=== PATIENT | male | born 1950 | race Caucasian/White ===

== ENCOUNTER 2022-07-16 11:46 | Emergency (ER) | payer MEDICARE, OTHER ==
--- NOTE | 2022-07-16 12:19 | ERPHSYRPT ---
- History of Present Illness Time Seen by Provider: 07/16/22 12:18 Source: patient, family Exam Limitations: no limitations Patient Subjective Stated Complaint: Hematuria that started this am. Patient states that he is not supposed to lift over 25 pounds related to prostate issues but lifted an air compressor yesterday evening and now has blood in his urine this am. Denies any pain except when urinating. Patient has burning with urination. Triage Nursing Assessment: Patient ambulated back to ER. He is alert and oriented but hard of hearing. No SOB. Patient supplied a urine sample for staff. Urine is diaz red. No abdominal pain. Physician History: Hematuria that started this am. Patient states that he is not supposed to lift over 25 pounds related to prostate issues but lifted an air compressor yesterday evening and now has blood in his urine this am. Denies any pain except when urinating. Patient has burning with urination. Timing/Duration: today Activites at Onset: physical activity Quality: burning Pain Radiation: none Severity of Pain-Max: none Severity of Pain-Current: none Modifying Factors: Improves With: nothing Associated Symptoms: denies symptoms Prior abdominal problems: none Sexual intercourse history: non-contributory Allergies/Adverse Reactions: Sulfa (Sulfonamide Antibiotics) Allergy (Intermediate, Verified 07/16/22 11:56) Hives guaifenesin [From Humibid] Adverse Reaction (Intermediate, Verified 07/16/22 11:56) Fatigue Pt states makes him feel groggy. morphine Adverse Reaction (Intermediate, Verified 07/16/22 11:56) Nausea and Vomiting Home Medications: Clopidogrel Bisulfate [PLAVIX Tablet] 1 tab PO DAILY 12/25/12 [History] Aspirin EC 81 mg [Ecotrin 81 mg] 1 tab PO DAILY 07/16/22 [History] Losartan Potassium [Cozaar] 1 tab PO DAILY 07/16/22 [History] Metoprolol Tartrate 25 mg [Lopressor 25MG Tab] 1 tab PO BID 07/16/22 [History] Topiramate 1 tab PO DAILY 07/16/22 [History] Hx Tetanus, Diphtheria Vaccination/Date Given: Yes Hx Influenza Vaccination/Date Given: No Hx Pneumococcal Vaccination/Date Given: No Immunizations Up to Date: Yes Travel Risk - International Travel Have you traveled outside of the country in past 3 weeks: No - Coronavirus Screening Are you exhibiting any of the following symptoms?: No Close contact with a COVID-19 positive Pt in past 14-21 Days: No - Vaccine Status Have you recieved a Covid-19 vaccination: Yes 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 - Past Medical History Pertinent Past Medical History: Yes Neurological History: Stroke ENT History: No Pertinent History Cardiac History: Hypertension Respiratory History: No Pertinent History Endocrine Medical History: No Pertinent History Musculoskeletal History: Arthritis, Fractures GI Medical History: Colitis, Gallbladder Disease, Pancreatitis History: Other Psycho-Social History: No Pertinent History Male Reproductive Disorders: Prostate Problems Other Medical History: New Urologist: Dr. Moncada; seen by Kelly Amaro 2 weeks ago - Past Surgical History Past Surgical History: Yes Neuro Surgical History: No Pertinent History Cardiac: Pacemaker Respiratory: No Pertinent History Gastrointestinal: Cholecystectomy, Colon Resection, Other Genitourinary: No Pertinent History Musculoskeletal: Orthopedic Surgery Male Surgical History: No Pertinent History Other Surgical History: right arm fx,colostomy placed and reversed, cardiac loop recorder, TURP X 2 - Social History Smoking Status: Never smoker Exposure to second hand smoke: No Drug Use: none Patient Lives Alone: No - Review of Systems Constitutional: No Fever, No Chills Eyes: No Symptoms Ears, Nose, & Throat: No Symptoms Respiratory: No Cough, No Dyspnea Cardiac: No Chest Pain, No Edema, No Syncope Abdominal/Gastrointestinal: No Abdominal Pain, No Nausea, No Vomiting, No Diarrhea Genitourinary Symptoms: Dysuria, Hematuria Musculoskeletal: No Back Pain, No Neck Pain Skin: No Rash Neurological: No Dizziness, No Focal Weakness, No Sensory Changes Psychological: No Symptoms Endocrine: No Symptoms All Other Systems: Reviewed and Negative - Nursing Vital Signs Nursing Vital Signs: Initial Vital Signs Temperature 97.4 F 07/16/22 11:58 Pain Scale Pain Intensity 0 - Physical Exam General Appearance: no apparent distress, alert Eye Exam: PERRL/EOMI Ears, Nose, Throat Exam: pharynx normal, moist mucous membranes Neck Exam: normal inspection, supple Respiratory Exam: normal breath sounds, lungs clear Cardiovascular Exam: regular rate/rhythm, No edema Gastrointestinal/Abdomen Exam: soft, No tenderness Back Exam: normal inspection, No CVA tenderness Extremity Exam: normal inspection, normal range of motion, No pedal edema Neurologic Exam: alert, oriented x 3, cooperative, sensation nml, No motor deficits Skin Exam: normal color, warm, dry, No rash - Course Nursing assessment & vital signs reviewed: Yes Ordered Tests: Active Orders 24 hr Category Date Time Status CBC W DIFF Stat Lab 07/16/22 12:38 Completed CMP Stat Lab 07/16/22 12:38 Received CULTURE,URINE Stat Lab 07/16/22 12:23 Received Prostate Spec.Ag,Diagnostic Stat Lab 07/16/22 12:38 Received UA W/RFX UR CULTURE Stat Lab 07/16/22 12:23 Completed Lab/Rad Data: Laboratory Result Diagrams 07/16/22 12:38 Laboratory Results 07/16/22 07/16/22 Range/Units 12:38 12:23 WBC 6.1 (4.0-10.5) x10^3/uL RBC 4.50 (4.1-5.6) x10^6/uL Hgb 12.9 (12.5-18.0) g/dL Hct 40.1 L (42-50) % MCV 89.1 (78-100) fL MCH 28.7 (26-32) pg MCHC 32.2 (32-36) g/dL RDW 12.6 (11.5-14.0) % Plt Count 334 (150-450) x10^3/uL MPV 9.2 (7.5-11.0) fL Gran % 65.4 (36.0-66.0) % Immature Gran % (Auto) 0.8 H (0.00-0.4) % Nucleat RBC Rel Count 0.0 (0.00-0.1) % Eos # (Auto) 0.31 (0-0.5) x10^3/uL Immature Gran # (Auto) 0.05 H (0.00-0.03) x10^3u/L Absolute Lymphs (auto) 1.27 (1.0-4.6) x10^3/uL Absolute Monos (auto) 0.42 (0.0-1.3) x10^3/uL Absolute Nucleated RBC 0.00 (0.00-0.01) x10^3u/L Lymphocytes % 20.8 L (24.0-44.0) % Monocytes % 6.9 (0.0-12.0) % Eosinophils % 5.1 H (0.00-5.0) % Basophils % 1.0 (0.0-0.4) % Absolute Granulocytes 4.00 (1.4-6.9) x10^3/uL Basophils # 0.06 (0-0.4) x10^3/uL Urine Color RED (Yellow) Urine Appearance CLOUDY (Clear) Urine Microscopic RBC >100 A (0-5) /HPF Urine Microscopic WBC 3-5 (0-5) /HPF Ur Epithelial Cells Few (None Seen) /HPF Urine Bacteria Few A (None Seen) /HPF Urine Culture Reflexed YES (NO) - Progress Progress: improved Counseled pt/family regarding: diagnosis, need for follow-up Medical Desision Making - Diagnostic Testing Diagnostic Testing: Diagnostic tests were ordered,analyzed, and reviewed by me and used in my medical decision making for this patient. Radiologic studies (if ordered) were read by me initially then discussed with the radiologist . - Departure Departure Disposition: Home Clinical Impression: Hematuria Qualifiers: Hematuria type: gross Qualified Code(s): R31.0 - Gross hematuria Condition: Stable Critical Care Time: Yes Critical Care Time(excluding separately billable procedures): Critical 30-74 mins Referrals: NIMA AVILES [Primary Care Provider] - Follow up/PCP as directed Instructions: Blood in the Urine (Hematuria) in Adults Additional Instructions: Discharge/Care Plan ABEL OLIVARES was seen on 07/16/22 in the Emergency Room. The patient was counseled regarding Diagnosis,Lab results, Imaging studies, need for follow up and when to return to the Emergency Room. Prescriptions given: Discharge Note I have spoken with the patient and/or caregivers. I have explained the patient's condition, diagnosis and treatment plan based on the information available to me at this time. I have answered the patient's and/or caregiver's questions and addressed any concerns. The patient and/or caregivers have as good understanding of the patient's diagnosis, condition and treatment plan as can be expected at this point. The vital signs have been stable. The patient's condition is stable and appropriate for discharge from the emergency department. The patient will pursue further outpatient evaluation with the primary care phys ician or other designated or consulting physician as outlined in the discharge instructions. The patient and/or caregivers are agreeable to this plan of care and follow-up instructions have been explained in detail. The patient and/or caregivers have received these instruction. The patient/and or caregivers are aware that any significant change in condition or worsening of symptoms should prompt an immediate return to this or the closest emergency department or call 911. ABEL OLIVARES was seen on 07/16/22 n the Emergency Room. At that time you were treated for an emergent condition, during your visit Laboratory, Radiology and/or other procedures may have been ordered. It is very important that you follow-up with your Primary Care Physician NIMA AVILES within the next 24-48 hours to review your Emergency Room visit and the final results of testing that was ordered. Some test results such as Urine Cultures, Blood Cultures, and other cultures if ordered will not be finalized for 24-48 hours. If you do not have a Primary Care Provider please call the medical records department at [phone] to obtain a copy of your results or you may sign into our patient portal to obtain these results by visiting us @ [email or web address] and completing the following steps: 1. Click on the Patient Portal link 2. Click the Patient Self Enrollment Link to complete the enrollment form and entering your 3. Once the enrollment form is completed you will receive an email with a temporary ID and password at the email address you provided. 4. Next choose a user name and password. Your user name must be at least 4 characters long and your password must be at least 4 characters long. 5. Choose a security question from the list and provide your answer to the question. If you already have signed into the Health Portal you may access your Health Care Information 25/12 by the following steps: 1. Login to our website @ [email or web address] 2. Enter your original user name and password. FAQS The [facility] Health Portal is an online tool that contains your Lab Results, Radiology Reports, Visit History, Discharge Instructions and Health Summary Lab and Radiology Results will not be available for 72 hours on the portal. The Portal is a secure site, passwords are encryted and URLs are re-written so they cannot be copied and pasted. You and authorized family members are the only ones who can access your Portal. Also there is a timeout feature that protects your information if you leave the Portal page open. If you have technical difficulty please use the Contact Us link on the page this will allow you to submit any questions you have regarding the Portal or you may contact the Medical Record Department at [phone]. Hold aspirin and Plavix for the next 3 to 5 days follow-up with your primary care physician in next 2 to 3 days
[2022-07-16 12:39] LABS: Basophil (Absolute #) 0.06 x10^3/uL (0-0.4); Eosinophil % 5.1 % (0.00-5.0); Eosinophil (Absolute #) 0.31 x10^3/uL (0-0.5); Hematocrit 40.1 % (42-50); Hemoglobin 12.9 g/dL (12.5-18.0); IMMATURE GRAN # 0.05 x10^3u/L (0.00-0.03); IMMATURE GRAN % 0.8 % (0.00-0.4); Lymphocyte (Absolute #) 1.27 x10^3/uL (1.0-4.6); Lymphocytes % 20.8 % (24.0-44.0); Mean Cell Volume 89.1 fL (78-100); Mean Corpuscular Hemoglobin 28.7 pg (26-32); Mean Corpuscular Hgb Concent. 32.2 g/dL (32-36); Mean Platelet Volume 9.2 fL (7.5-11.0); Monocyte (Absolute #) 0.42 x10^3/uL (0.0-1.3); Monocytes % 6.9 % (0.0-12.0); Neutrophil % 65.4 % (36.0-66.0); Platelet Count 334 x10^3/uL (150-450); Red Cell Distribution Width 12.6 % (11.5-14.0); White Blood Count 6.1 x10^3/uL (4.0-10.5)
[2022-07-16 13:00] LABS: Epithelial Cells Few /HPF (None Seen); RBC >100 /HPF (0-5)
[2022-07-16 13:01] LABS: Bacteria Few /HPF (None Seen)
[2022-07-16 13:03] LABS: ADD URINE CULTURE? YES (NO); Appearance CLOUDY (Clear)
[2022-07-16 13:26] LABS: ALBUMIN 4.7 g/dL (3.5-5.0); ALKALINE PHOSPHATASE 89 U/L (38-126); ANION GAP 13.1 MEQ/L (5-15); BLOOD UREA NITROGEN 14 mg/dL (9-20); CHLORIDE 107 mmol/L (98-107); Carbon Dioxide 23 mmol/L (22-30); Creatinine 1 0.91 mg/dL (0.66-1.25); EST GLOMERULAR FILTRATION RATE > 60.0 ML/MIN; Glucose 96 mg/dL (74-106); Potassium 4.4 mmol/L (3.5-5.1); SGOT/AST 32 U/L (17-59); SGPT/ALT 37 U/L (0-50); SODIUM 138 mmol/L (137-145); Total Protein 7.7 g/dL (6.3-8.2)
[2022-07-16 14:24] VITALS: BP 126/82; PULSE 71; O2SAT 98
== END 2022-07-16 14:15 | disposition home or self-care (01) ==
LOC: ED 11:46
DX: R31.0 Gross hematuria (principal); R30.0 Dysuria; I10 Essential (primary) hypertension; Z79.02 Long term (current) use of antithrombotics/antiplatelets; Z79.899 Other long term (current) drug therapy
CPT/HCPCS: 36415; 80053; 81001; 84153; 85025; 87086; 99283

== ENCOUNTER 2022-10-20 14:04 | Emergency (ER) | payer MEDICARE, OTHER ==
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
[2022-10-20 14:19] VITALS: BP 160/93
[2022-10-20 14:44] LABS: Appearance Turbid (Clear); Bilirubin Small (Negative); Blood Large (Negative); Epithelial Cells None Seen /HPF (None Seen); Glucose, Urine Negative (Negative); Hyaline Casts NONE SEEN /LPF (0-2); Ketones Negative (Negative); Leukocyte Esterase Moderate (Negative); Nitrite Positive (Negative); Ph 7.5 (4.6-8.0); Protein,Urine Dip 300 (Negative); RBC >100 /HPF (0-5); Urobilinogen 0.2 mg/dL (0.2)
[2022-10-20 14:45] LABS: Absolute Neutrophil Ct (ANC) 5.31 x10^3/uL (1.4-6.9); BASOPHIL % 0.8 % (0.0-0.4); Basophil (Absolute #) 0.06 x10^3/uL (0-0.4); Eosinophil % 3.8 % (0.00-5.0); Hematocrit 38.3 % (42-50); Hemoglobin 12.2 g/dL (12.5-18.0); IMMATURE GRAN # 0.08 x10^3u/L (0.00-0.03); Lymphocyte (Absolute #) 1.53 x10^3/uL (1.0-4.6); Lymphocytes % 19.6 % (24.0-44.0); Mean Cell Volume 89.7 fL (78-100); Mean Corpuscular Hemoglobin 28.6 pg (26-32); Mean Corpuscular Hgb Concent. 31.9 g/dL (32-36); Mean Platelet Volume 9.3 fL (7.5-11.0); Monocyte (Absolute #) 0.52 x10^3/uL (0.0-1.3); Monocytes % 6.7 % (0.0-12.0); Neutrophil % 68.1 % (36.0-66.0); Platelet Count 350 x10^3/uL (150-450); Red Blood Count 4.27 x10^6/uL (4.1-5.6); Red Cell Distribution Width 12.9 % (11.5-14.0); White Blood Count 7.8 x10^3/uL (4.0-10.5)
[2022-10-20 14:57] LABS: ANION GAP 14.1 MEQ/L (5-15); BLOOD UREA NITROGEN 15 mg/dL (9-20); CHLORIDE 107 mmol/L (98-107); Calcium 8.9 mg/dL (8.4-10.2); Carbon Dioxide 23 mmol/L (22-30); EST GLOMERULAR FILTRATION RATE > 60.0 ML/MIN; Glucose 133 mg/dL (74-106); Potassium 4.2 mmol/L (3.5-5.1); SODIUM 141 mmol/L (137-145)
[2022-10-20 15:10] LABS: Bacteria Rare /HPF (None Seen)
[2022-10-20 15:11] LABS: ADD URINE CULTURE? YES (NO)
[2022-10-20] MEDS ORDERED: BACTRIM DS TABLET PO ONE ×2 (15:39→15:42)
[2022-10-20 16:29] VITALS: PULSE 73; O2SAT 97
== END 2022-10-20 16:29 | disposition home or self-care (01) ==
LOC: ED 14:04
DX: N39.0 Urinary tract infection, site not specified (principal); R31.0 Gross hematuria; R30.0 Dysuria; I10 Essential (primary) hypertension; E78.5 Hyperlipidemia, unspecified; Z79.02 Long term (current) use of antithrombotics/antiplatelets; Z79.899 Other long term (current) drug therapy
CPT/HCPCS: 36415; 80048; 81001; 85025; 87086; 99283; A9270-GY

== ENCOUNTER 2023-01-31 15:56 | Day surgery (SDC) | payer MEDICARE, OTHER ==
[2023-01-31] MEDS ORDERED: BUPIVACAINE 0.5% VIAL IJ ONE (15:57)
[2023-01-31] MEDS ORDERED: Depo-Medrol 40 MG/ML IM ONE (15:57)
[2023-01-31] MEDS ORDERED: LIDOCAINE HCL 1% 50 MG/5 ML VL PF IJ ONE (15:57)
--- NOTE | 2023-01-31 22:51 | XRAY ---
Indication: Left knee injection. Intraoperative fluoroscopy provided 9 seconds. Single digital spot image submitted for interpretation demonstrates needle tip projecting over left femur intercondylar notch. Small amount of contrast injected for needle tip placement. Correlate with intraoperative findings/report.
--- NOTE | 2023-01-31 22:52 | XRAY ---
Indication: Right knee injection. Intraoperative fluoroscopy provided 7 seconds. Single digital spot image submitted for interpretation demonstrates needle tip projecting over right femur intercondylar notch. Small amount of contrast injected for needle tip placement. Correlate with intraoperative findings/report.
--- NOTE | 2023-02-01 09:07 | XRAY ---
7 seconds of fluoroscopy was used in surgery for a right intra-articular knee injection.
--- NOTE | 2023-02-01 09:07 | XRAY ---
9 seconds of fluoroscopy was used in surgery for a left intra-articular knee injection.
== END 2023-01-31 18:15 | disposition home or self-care (01) ==
LOC: SDC-PAIN 15:56
PROVIDERS: ATTEND Psychiatry & Neurology Pain Medicine
DX: M17.0 Bilateral primary osteoarthritis of knee (principal); Z79.899 Other long term (current) drug therapy
CPT/HCPCS: 20610; 73560; 77002; J1030; J2001; Q9966

== ENCOUNTER 2023-03-07 15:31 | Emergency (ER) | payer MEDICARE, OTHER ==
[2023-03-07 16:54] VITALS: TEMP 97.7
[2023-03-07 18:00] LABS: Absolute Neutrophil Ct (ANC) 6.77 x10^3/uL (1.4-6.9); BASOPHIL % 0.7 % (0.0-0.4); Basophil (Absolute #) 0.07 x10^3/uL (0-0.4); Eosinophil % 2.7 % (0.00-5.0); Eosinophil (Absolute #) 0.26 x10^3/uL (0-0.5); Hematocrit 36.9 % (42-50); IMMATURE GRAN # 0.08 x10^3u/L (0.00-0.03); IMMATURE GRAN % 0.8 % (0.00-0.4); Lymphocyte (Absolute #) 1.71 x10^3/uL (1.0-4.6); Lymphocytes % 18.1 % (24.0-44.0); Mean Cell Volume 88.1 fL (78-100); Mean Corpuscular Hemoglobin 28.6 pg (26-32); Mean Corpuscular Hgb Concent. 32.5 g/dL (32-36); Mean Platelet Volume 9.1 fL (7.5-11.0); Monocyte (Absolute #) 0.58 x10^3/uL (0.0-1.3); Monocytes % 6.1 % (0.0-12.0); Neutrophil % 71.6 % (36.0-66.0); Platelet Count 415 x10^3/uL (150-450); Red Blood Count 4.19 x10^6/uL (4.1-5.6); Red Cell Distribution Width 13.3 % (11.5-14.0); White Blood Count 9.5 x10^3/uL (4.0-10.5)
[2023-03-07 18:15] LABS: ALBUMIN 4.8 g/dL (3.5-5.0); ALKALINE PHOSPHATASE 68 U/L (38-126); ANION GAP 17.1 MEQ/L (5-15); BLOOD UREA NITROGEN 17 mg/dL (9-20); CHLORIDE 100 mmol/L (98-107); Calcium 9.2 mg/dL (8.4-10.2); Carbon Dioxide 24 mmol/L (22-30); Creatinine 1 0.92 mg/dL (0.66-1.25); EST GLOMERULAR FILTRATION RATE > 60.0 ML/MIN; Glucose 104 mg/dL (74-106); Potassium 3.2 mmol/L (3.5-5.1); SGOT/AST 39 U/L (17-59); SGPT/ALT 42 U/L (0-50); SODIUM 138 mmol/L (137-145); Total Protein 7.5 g/dL (6.3-8.2)
[2023-03-07 18:17] LABS: INR 0.98 (0.8-3.0); PROTIME 10.7 SECONDS (9.4-12.5); PTT 29.3 SECONDS (25.1-36.5)
[2023-03-07] MEDS ORDERED: Zofran 4 MG/2 ML VIAL IV ONE (18:20)
[2023-03-07] MEDS ORDERED: SUBLIMAZE 100 MCG/2 ML IV ONE (18:20)
[2023-03-07] MEDS ORDERED: Zofran 4 MG/2 ML VIAL ONE (18:22)
[2023-03-07] MEDS ORDERED: SUBLIMAZE 100 MCG/2 ML ONE (18:23)
[2023-03-07 18:44] LABS: ABO TYPING A; Antibody Screen NEGATIVE (NEGATIVE); RH TYPING POSITIVE
--- NOTE | 2023-03-07 19:01 | ERPHSYRPT ---
- History of Present Illness Source: patient, other () Exam Limitations: no limitations Patient Subjective Stated Complaint: Pt is bleeding from the prostate, pt gets tears in his prostate and has a large amount of blood coming from his penis, pt has a hx of this happening multiple times Triage Nursing Assessment: Pt brought to the ER by his , vitals wnl, denies pain, pt is having a large amount of blood coming from his prostate, pt has a hx of multiple TURP's, pulses normal, skin n/w/d, no difficulty with breathing Physician History: 72 yo WM w h/o Turp x2 and recently normal cystoscopy by Dr. Moncada per presents w hematuria since 11AM. He denies pain/trauma/anticoagulants/dysuria/fever. He does take ASA/plavix daily. Cancer is denied. Timing/Duration: other (11AM) Activites at Onset: other (Lifting) Onset Location: unknown Pain Radiation: none Severity of Pain-Max: none Severity of Pain-Current: none Modifying Factors: Improves With: nothing Sexual intercourse history: non-contributory Allergies/Adverse Reactions: Sulfa (Sulfonamide Antibiotics) Allergy (Intermediate, Verified 03/07/23 16:54) Hives guaifenesin [From Humibid] Adverse Reaction (Intermediate, Verified 03/07/23 16:54) Fatigue Pt states makes him feel groggy. morphine Adverse Reaction (Intermediate, Verified 03/07/23 16:54) Nausea and Vomiting Home Medications: Clopidogrel Bisulfate [PLAVIX Tablet] 75 mg PO DAILY 12/25/12 [History] Aspirin EC 81 mg [Ecotrin 81 mg] 81 mg PO DAILY 07/16/22 [History] Losartan Potassium [Cozaar] 25 mg PO DAILY 07/16/22 [History] Metoprolol Tartrate 25 mg [Lopressor 25MG Tab] 1 tab PO DAILY 07/16/22 [History] Topiramate 50 mg PO DAILY 07/16/22 [History] Atorvastatin Calcium [Lipitor 20MG Tablet] 20 mg PO DAILY 03/07/23 [History] Ezetimibe [Zetia] 10 mg PO DAILY 03/07/23 [History] Hydrochlorothiazide 25 mg [hydroDIURIL 25 MG] 25 mg PO DAILY 03/07/23 [History] gemfibroziL [Gemfibrozil] 600 mg PO BID 03/07/23 [History] Hx Tetanus, Diphtheria Vaccination/Date Given: Yes Hx Influenza Vaccination/Date Given: No Hx Pneumococcal Vaccination/Date Given: No Travel Risk - International Travel Have you traveled outside of the country in past 3 weeks: No - Coronavirus Screening Are you exhibiting any of the following symptoms?: No Close contact with a COVID-19 positive Pt in past 14-21 Days: No - Vaccine Status Have you recieved a Covid-19 vaccination: Yes 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[employer]: [employer] - Vaccination Dates Date of 2cond Vaccination (if applicable): 2020 - Past Medical History Pertinent Past Medical History: Yes Neurological History: TIA, Other ENT History: No Pertinent History Cardiac History: Arrhythmia, High Cholesterol, Hypertension, Other Respiratory History: Sleep Apnea Endocrine Medical History: No Pertinent History Musculoskeletal History: Osteoarthritis GI Medical History: Colitis, Gallbladder Disease, Pancreatitis History: Other Psycho-Social History: No Pertinent History Male Reproductive Disorders: Prostate Problems Other Medical History: SX HX: PACEMAKER PLACED 2016, TURP X 3, CHOLECYSTECTOMY, HERNIA REPAIR (ABDOMINAL), COLOSTOMY AND REVERSAL AFTER TRAUMA (IMPALED ON RICHI) - Past Surgical History Past Surgical History: Yes Neuro Surgical History: No Pertinent History Cardiac: Pacemaker Respiratory: No Pertinent History Gastrointestinal: Cholecystectomy, Colon Resection, Other Genitourinary: No Pertinent History Musculoskeletal: Orthopedic Surgery Male Surgical History: No Pertinent History Other Surgical History: right arm fx,colostomy placed and reversed, cardiac loop recorder, TURP X 2 - Social History Smoking Status: Never smoker Exposure to second hand smoke: No Drug Use: none Patient Lives Alone: No - Review of Systems Constitutional: No Symptoms Eyes: No Symptoms Ears, Nose, & Throat: No Symptoms Respiratory: No Symptoms Cardiac: No Symptoms Abdominal/Gastrointestinal: No Symptoms Genitourinary Symptoms: No Symptoms, Hematuria Musculoskeletal: No Symptoms Skin: No Symptoms Neurological: No Symptoms Psychological: No Symptoms Endocrine: No Symptoms Hematologic/Lymphatic: No Symptoms Immunological/Allergic: No Symptoms - Nursing Vital Signs Nursing Vital Signs: Initial Vital Signs Temperature 97.7 F 03/07/23 16:42 Pulse Rate 70 03/07/23 16:42 Blood Pressure 132/90 03/07/23 16:42 O2 Sat by Pulse Oximetry 98 03/07/23 16:42 Pain Scale Pain Intensity 7 WNL - Physical Exam General Appearance: no apparent distress Eye Exam: PERRL/EOMI, eyes nml inspection Ears, Nose, Throat Exam: normal ENT inspection, TMs normal, pharynx normal, moist mucous membranes Neck Exam: normal inspection, non-tender, supple, full range of motion, No meningismus, No mass, No Brudzinski, No Kernig's Respiratory Exam: normal breath sounds, lungs clear, airway intact Cardiovascular Exam: regular rate/rhythm, normal heart sounds, normal peripheral pulses, capillary refill <2 sec, No murmur Gastrointestinal/Abdomen Exam: soft, normal bowel sounds, No tenderness Male Genital Exam: bleeding, uncircumcised Back Exam: normal inspection, normal range of motion, No CVA tenderness Extremity Exam: normal inspection, normal range of motion Neurologic Exam: alert, oriented x 3, cooperative, nut cracker II-XII nml as tested, normal mood/affect, sensation nml Skin Exam: normal color, warm, dry Lymphatic Exam: No adenopathy SpO2 Interpretation: normal SpO2: 97 O2 Delivery: Room Air - Course Nursing assessment & vital signs reviewed: Yes Ordered Tests: Active Orders 24 hr Category Date Time Status ABDOMEN AND PELVIS W/0 CONTRAS [CT] Stat Exams 03/07/23 17:22 Taken CBC W DIFF Stat Lab 03/07/23 17:22 Completed CMP Stat Lab 03/07/23 17:48 Completed CULTURE,URINE Stat Lab 03/07/23 18:43 Received PROTIME WITH INR Stat Lab 03/07/23 17:48 Completed PTT Stat Lab 03/07/23 17:48 Completed Medication Summary Discontinued Medications Generic Name Dose Route Start Last Admin Trade Name Cornelio PRN Reason Stop Dose Admin Fentanyl Citrate 50 mcg 03/07/23 18:20 03/07/23 18:25 Fentanyl Citrate 100 Mcg/2 Ml* Vial IV 03/07/23 18:21 50 mcg STAT ONE Administration Fentanyl Citrate Confirm 03/07/23 18:23 Fentanyl Citrate 100 Mcg/2 Ml* Vial Administered 03/07/23 18:24 Dose 100 mcg .ROUTE .STK-MED ONE Ceftriaxone Sodium/Dextrose 1 g in 50 mls @ 100 mls/hr 03/07/23 20:38 03/07/23 21:34 Rocephin 1 Gm-D5w 50 Ml Bag IV 03/07/23 21:07 Infused STAT STA Infusion Sodium Chloride 1,000 mls @ 999 mls/hr 03/07/23 20:39 03/07/23 22:19 Sodium Chloride 0.9% 1000 Ml IV 03/07/23 21:39 Infused .Q1H1M STA Infusion Sodium Chloride Confirm 03/07/23 20:53 Sodium Chloride 0.9% 1000 Ml Administered 03/07/23 20:54 Dose 1,000 mls @ ud .ROUTE .STK-MED ONE Ceftriaxone Sodium/Dextrose Confirm 03/07/23 20:53 Rocephin 1 Gm-D5w 50 Ml Bag Administered 03/07/23 20:54 Dose 1 g in 50 mls @ ud IV .STK-MED ONE Ondansetron HCl 4 mg 03/07/23 18:20 03/07/23 18:24 Ondansetron Hcl 4 Mg/2 Ml Vial IV 03/07/23 18:21 4 mg STAT ONE Administration Ondansetron HCl Confirm 03/07/23 18:22 Ondansetron Hcl 4 Mg/2 Ml Vial Administered 03/07/23 18:23 Dose 4 mg .ROUTE .STK-MED ONE Lab/Rad Data: Laboratory Result Diagrams 03/07/23 17:22 03/07/23 17:48 Laboratory Results 03/07/23 03/07/23 03/07/23 Range/Units 18:33 17:48 17:48 WBC (4.0-10.5) x10^3/uL RBC (4.1-5.6) x10^6/uL Hgb (12.5-18.0) g/dL Hct (42-50) % MCV (78-100) fL MCH (26-32) pg MCHC (32-36) g/dL RDW (11.5-14.0) % Plt Count (150-450) x10^3/uL MPV (7.5-11.0) fL Gran % (36.0-66.0) % Immature Gran % (Auto) (0.00-0.4) % Nucleat RBC Rel Count (0.00-0.1) % Eos # (Auto) (0-0.5) x10^3/uL Immature Gran # (Auto) (0.00-0.03) x10^3u/L Absolute Lymphs (auto) (1.0-4.6) x10^3/uL Absolute Monos (auto) (0.0-1.3) x10^3/uL Absolute Nucleated RBC (0.00-0.01) x10^3u/L Lymphocytes % (24.0-44.0) % Monocytes % (0.0-12.0) % Eosinophils % (0.00-5.0) % Basophils % (0.0-0.4) % Absolute Granulocytes (1.4-6.9) x10^3/uL Basophils # (0-0.4) x10^3/uL PT (9.4-12.5) SECONDS INR (0.8-3.0) APTT (25.1-36.5) SECONDS Sodium (137-145) mmol/L Potassium (3.5-5.1) mmol/L Chloride (98-107) mmol/L Carbon Dioxide (22-30) mmol/L Anion Gap (5-15) MEQ/L BUN (9-20) mg/dL Creatinine (0.66-1.25) mg/dL Estimated GFR ML/MIN Glucose (74-106) mg/dL Calcium (8.4-10.2) mg/dL Total Bilirubin (0.2-1.3) mg/dL AST (17-59) U/L ALT (0-50) U/L Alkaline Phosphatase (38-126) U/L Serum Total Protein (6.3-8.2) g/dL Albumin (3.5-5.0) g/dL Urine Color RED A (YELLOW) Urine Appearance TURBID A (CLEAR) Urine pH 8.5 A (5-6) Ur Specific [place] <=1.005 A (1.005-1.025) POC Urine Protein Conf >=300 A (Negative) Urine Ketones MODERATE-40 A (NEGATIVE) Urine Nitrite NEGATIVE (NEGATIVE) Urine Bilirubin LARGE A (NEGATIVE) Urine Urobilinogen >=8.0 A (0-1) mg/dL Urine Leukocytes LARGE A (NEGATIVE) U Hyaline Cast (Auto) NONE SEEN (0-2) /LPF Urine RBC LARGE A (0-5) Willard/ul Urine Microscopic RBC >100 A (0-5) /HPF Urine Microscopic WBC 21-50 A (0-5) /HPF Ur Epithelial Cells None Seen (None Seen) /HPF Urine Bacteria Rare A (None Seen) /HPF Urine Culture Reflexed ORDERED SEPARATELY (NO) Urine Glucose 100 A (NEGATIVE) mg/dL ABO Group A Rh Factor POSITIVE Antibody Screen NEGATIVE (NEGATIVE) Crossmatch COMPATIBLE COMPATIBLE (COMPATIBLE) 03/07/23 03/07/23 03/07/23 Range/Units 17:48 17:48 17:22 WBC 9.5 (4.0-10.5) x10^3/uL RBC 4.19 (4.1-5.6) x10^6/uL Hgb 12.0 L (12.5-18.0) g/dL Hct 36.9 L (42-50) % MCV 88.1 (78-100) fL MCH 28.6 (26-32) pg MCHC 32.5 (32-36) g/dL RDW 13.3 (11.5-14.0) % Plt Count 415 (150-450) x10^3/uL MPV 9.1 (7.5-11.0) fL Gran % 71.6 H (36.0-66.0) % Immature Gran % (Auto) 0.8 H (0.00-0.4) % Nucleat RBC Rel Count 0.0 (0.00-0.1) % Eos # (Auto) 0.26 (0-0.5) x10^3/uL Immature Gran # (Auto) 0.08 H (0.00-0.03) x10^3u/L Absolute Lymphs (auto) 1.71 (1.0-4.6) x10^3/uL Absolute Monos (auto) 0.58 (0.0-1.3) x10^3/uL Absolute Nucleated RBC 0.00 (0.00-0.01) x10^3u/L Lymphocytes % 18.1 L (24.0-44.0) % Monocytes % 6.1 (0.0-12.0) % Eosinophils % 2.7 (0.00-5.0) % Basophils % 0.7 (0.0-0.4) % Absolute Granulocytes 6.77 (1.4-6.9) x10^3/uL Basophils # 0.07 (0-0.4) x10^3/uL PT 10.7 (9.4-12.5) SECONDS INR 0.98 (0.8-3.0) APTT 29.3 (25.1-36.5) SECONDS Sodium 138 (137-145) mmol/L Potassium 3.2 L (3.5-5.1) mmol/L Chloride 100 (98-107) mmol/L Carbon Dioxide 24 (22-30) mmol/L Anion Gap 17.1 H (5-15) MEQ/L BUN 17 (9-20) mg/dL Creatinine 0.92 (0.66-1.25) mg/dL Estimated GFR > 60.0 ML/MIN Glucose 104 (74-106) mg/dL Calcium 9.2 (8.4-10.2) mg/dL Total Bilirubin 0.50 (0.2-1.3) mg/dL AST 39 (17-59) U/L ALT 42 (0-50) U/L Alkaline Phosphatase 68 (38-126) U/L Serum Total Protein 7.5 (6.3-8.2) g/dL Albumin 4.8 (3.5-5.0) g/dL Urine Color (YELLOW) Urine Appearance (CLEAR) Urine pH (5-6) Ur Specific [place] (1.005-1.025) POC Urine Protein Conf (Negative) Urine Ketones (NEGATIVE) Urine Nitrite (NEGATIVE) Urine Bilirubin (NEGATIVE) Urine Urobilinogen (0-1) mg/dL Urine Leukocytes (NEGATIVE) U Hyaline Cast (Auto) (0-2) /LPF Urine RBC (0-5) Willard/ul Urine Microscopic RBC (0-5) /HPF Urine Microscopic WBC (0-5) /HPF Ur Epithelial Cells (None Seen) /HPF Urine Bacteria (None Seen) /HPF Urine Culture Reflexed (NO) Urine Glucose (NEGATIVE) mg/dL ABO Group Rh Factor Antibody Screen (NEGATIVE) Crossmatch (COMPATIBLE) - Progress Progress: improved Progress Note: 03/07/23 19:02 Nursing note and vital signs reviewed No food or housing insecurities noted Additional history per 3 way Pascual placed per nursing w irrigation/No comps 03/07/23 23:05 Continuous irrigation started Pt accepted by Dr. Moncada/Dr. Salas 1gm IV Rocephin 1L NS bolus 03/07/23 23:06 Lab results reviewed and shared w pt/ CT results reviewed and shared w pt/ Counseled pt/family regarding: lab results, diagnosis, rad results Medical Desision Making - Independent Historian Additional History obtained from: Spouse - Discussion of managment Care discussed with:: specialist Reviewed:: Test results, Need for additional workup Agreed on:: decision to admit Will see patient: in hospital - Diagnostic Testing Diagnostic test were ordered, analyzed, and reviewed by me: Yes Radiological Interpretation: Reviewed by me - Risk of complications The pt has a high risk of morbidity or mortality based on: Decision regarding hospitilization or escalation of hosp level of care - Departure Departure Disposition: Transfer Clinical Impression: Hematuria Condition: Stable Critical Care Time: No Referrals: NIMA AVILES [Primary Care Provider] - Follow up/PCP as directed
[2023-03-07 19:34] LABS: Appearance TURBID (CLEAR); Bilirubin LARGE (NEGATIVE); Glucose 100 mg/dL (NEGATIVE)
[2023-03-07 19:35] LABS: ADD URINE CULTURE? ORDERED SEPARATELY (NO); Ketones MODERATE-40 (NEGATIVE); Nitrite NEGATIVE (NEGATIVE); Ph 8.5 (5-6); Protein,Urine Dip >=300 (Negative); RBC LARGE Ery/ul (0-5); Specific Gravity <=1.005 (1.005-1.025); Urobilinogen >=8.0 mg/dL (0-1)
[2023-03-07 19:36] LABS: Bacteria Rare /HPF (None Seen); Epithelial Cells None Seen /HPF (None Seen); Hyaline Casts NONE SEEN /LPF (0-2); RBC >100 /HPF (0-5); WBC 21-50 /HPF (0-5)
[2023-03-07 19:53] LABS: CROSS MATCH (PRBC) COMPATIBLE (COMPATIBLE)
[2023-03-07] MEDS ORDERED: ROCEPHIN 1 Gm-D5w 50 ml Bag** 1 G/50 ML IVPB IV STA (20:38)
[2023-03-07] MEDS ORDERED: Sodium Chloride 0.9% 1000 ML 1,000 ML IV STA (20:39)
[2023-03-07] MEDS ORDERED: Sodium Chloride 0.9% 1000 ML 1,000 ML ONE (20:53)
[2023-03-07] MEDS ORDERED: ROCEPHIN 1 Gm-D5w 50 ml Bag** 1 G/50 ML IVPB IV ONE (20:53)
[2023-03-07 22:21] VITALS: RESP 18
[2023-03-07 23:08] VITALS: O2SAT 97
[2023-03-07 23:11] VITALS: BP 118/65; PULSE 73
--- NOTE | 2023-03-08 08:54 | XRAY ---
Indication: Hematuria. Multiple contiguous axial images obtained through the abdomen and pelvis without contrast using renal stone protocol. Comparison: September 27, 2021 Lung bases again demonstrates a few bilateral benign noncalcified micronodules. No infiltrate or effusion. Heart not enlarged again with partially visualized cardiac pacer lead. No renal calculus or evidence for obstructive uropathy in either system. Stable small right lower renal vertical cyst. Urinary bladder demonstrates new Pascual balloon catheter. Urinary bladder also demonstrates 6.5 cm round intraluminal slightly hyperdense mass concerning for partially calcified bladder mass versus large blood clot. Intraluminal urinary bladder air either iatrogenic from Pascual catheter versus gas-forming bacterial infection. Enlarged prostate gland impresses on the base of the bladder. Noncontrasted stomach and bowel loops appear nonobstructed with normal appendix. Again minimal scattered descending diverticulosis without diverticulitis. Descending/sigmoid anastomosis intact. Again diffuse fatty liver with fatty sparing adjacent to gallbladder fossa and small left adrenal adenoma. Again cholecystectomy. No free fluid/air. Remaining liver, pancreas, spleen, adrenal glands, kidneys, and ureters are unremarkable for noncontrast exam. Minimal aortoiliac calcifications without AAA. Osseous structures intact with minimal/mild degenerative changes throughout the spine again greatest at L4-L5. Stable small fatty left inguinal hernia. Impression: 1. Continue negative renal calculus or evidence for obstructive uropathy. 2. New dense urinary bladder mass either calcified bladder mass versus large blood clot. Also new urinary bladder intraluminal air either iatrogenic versus gas-forming infection. 3. Chronic findings including benign pulmonary micronodules, fatty liver, colonic diverticulosis, left adrenal adenoma, right renal cyst, enlarged prostate, chronic bony findings, and small fatty left inguinal hernia.
== END 2023-03-07 23:13 | disposition short-term general hospital (02) ==
LOC: ED 15:31
DX: R31.9 Hematuria, unspecified (principal); N32.89 Other specified disorders of bladder; E78.5 Hyperlipidemia, unspecified; I10 Essential (primary) hypertension; Z79.02 Long term (current) use of antithrombotics/antiplatelets; Z79.899 Other long term (current) drug therapy
CPT/HCPCS: 36000; 36415; 51702; 74176; 80053; 81015; 85025; 85610; 85730; 86850; 86900; 86901; 86922; 87086; 96360; 96374; 96375; 99285; J0696; J2405; J3010